=== PATIENT | female | born 1990 | race Caucasian/White ===

== ENCOUNTER 2017-05-16 08:38 | Emergency (ER) | payer OTHER ==
[2017-05-16] MEDS ORDERED: KETOROLAC 30 MG/1 ML SDV IVP ONE (08:58)
[2017-05-16] MEDS ORDERED: METOCLOPRAMIDE 10 MG/2 ML VIAL IVP ONE (08:58)
[2017-05-16] MEDS ORDERED: NS 1,000 ML IV ONE (08:58)
[2017-05-16 08:59] VITALS: TEMP 98.4
[2017-05-16] MEDS ORDERED: MAGNESIUM SULF 1 GM/DEXTROSE 100 ML IV ONE (09:01)
--- NOTE | 2017-05-16 09:22 | EDPHY ---
H & P Stated Complaint: migraine Time Seen by Provider: 05/16/17 08:47 HPI/ROS: This patient presents with severe bifrontal headache more than occipital, pressure sensation. She reports the intensity is severe and the onset was 2 days ago. She is brought in by her mother by private vehicle for further evaluation. The patient reports that she had severe headaches in high school and was diagnosed at age 17 clinically with migraine but has never had any neuro imaging. She is concerned about tumor and she has a cousin that headache tumor and he reports worsening of the headache intensity in frequency recently to every few days having headache and describes escalating intensity with each headache. In the past she had been able to control her headaches with over-the- counter medications-typically NSAIDs and NyQuil or Excedrin but she has had no relief from his medications during this illness. She has not taken any medications this morning. She states the current intensity is 10/10 and worse with movement. She has associated photophobia and hyperacusis. ROS: Constitutional: No fevers or chills HEENT: No URI symptoms. Neuro: She describes blurry vision over the past couple days describes this as bilateral. She has no change in her hearing. No focal weakness though she does describe paresthesias bilateral hands and arms. She describes this as symmetric. No recent head trauma Pulmonary: No shortness of breath or other complaints Cardiovascular: No heart palpitations or lightheadedness line GI: Nausea but no vomiting. : No complaints Integumentary: No skin rash. Complete ROS is otherwise negative. Source: Patient Exam Limitations: No limitations - Personal History LMP (Females 10-55): 1-7 Days Ago - Medical/Surgical History Hx Asthma: No Hx Chronic Respiratory Disease: No Hx Diabetes: No Hx Cardiac Disease: No Hx Renal Disease: No Hx Cirrhosis: No Hx Alcoholism: No Hx HIV/AIDS: No Hx Splenectomy or Spleen Trauma: No Other PMH: migraines - Family History Significant Family History: Cancer (Intracranial tumors in 2 1st cousins) - Social History Smoking Status: Never smoked Alcohol Use: Occasionally Drug Use: None - Physical Exam Exam: Physical exam: Vital signs are normal General: Patient is in no acute distress. HEENT: Is no external evidence of trauma on exam. Nose atraumatic. Ears: Clear bilaterally with no hemotympanum. Oropharynx: No dental trauma or malocclusion. No intraoral lacerations. Eyes: Pupils are equal and reactive to light. Extraocular motions are intact. Optic fundi: Clear with no papilledema or hemorrhage. Neck: Trachea is midline with no stridor. The patient has no midline neck tenderness and retains a full range of motion without increase in pain. Lungs: Clear to auscultation bilaterally Cardiac: Regular rate and rhythm no murmur gallop or rub. Chest: Nontender. Abdomen: Soft nontender no organomegaly Back: Nontender Extremities: Atraumatic Neuro: GCS of 15. Cranial nerves II through XII intact. Cerebellar exam is normal as judged by symmetric rapid hand movements bilaterally. No pronator drift. No sensory or motor deficits are appreciated. Headache including but not limited to subarachnoid hemorrhage, migraine headache , tension headache and infectious causes such as meningitis, pharyngitis and sinusitis. Constitutional: Initial Vital Signs Temperature (C) 36.9 C 05/16/17 08:54 Heart Rate 77 05/16/17 08:54 Respiratory Rate 20 05/16/17 08:54 Blood Pressure 136/87 H 05/16/17 08:54 O2 Sat (%) 99 05/16/17 08:54 O2 Delivery Mode Room Air Allergies/Adverse Reactions: amoxicillin Allergy (Verified 05/16/17 08:59) Home Medications: Medication Instructions Recorded Ondansetron Odt [Zofran Odt] 4 - 8 mg PO Q4PRN PRN #4 tab 05/16/17 SUMAtriptan [Imitrex 50 MG (RX)] 50 - 100 mg PO Q2H PRN #6 tab 05/16/17 Medical Decision Making - Diagnostics Imaging Results: Imaging Impressions Head CT 05/16/17 09:00 Impression: No acute intracranial findings. Findings discussed with MINOO VALDEZ 05/16/2017 at 10:08. ED Course/Re-evaluation: IV normal saline bolus Reglan and Benadryl Toradol IV Magnesium IV Discussion: Given the patient's worst headache of life, change in the pattern intensity of the headache from prior headaches and lack of relief from over-the- counter medications as well as no prior neuro imaging with her headaches, I feel that she warrants CT imaging today to rule out intracranial bleed or tumor. I spoke with our radiologist-Dr. Muse regarding patient's CT brain which she read as negative. I also reviewed this CT myself The patient had complete resolution of her headache with treatment. Counseled her regarding migraine headaches. Although this was by cranial in location and otherwise this consistent with a migraine that is slightly different in character than her typical migraines. We ruled out intracranial bleed or tumor with normal head CT today. Will start her on Imitrex ibuprofen Zofran p.r.n. for any subsequent migraines with plan to follow up with Neurology for any ongoing symptoms despite treatment plan. At the time of discharge she is comfortable with a GCS 15. Her paresthesias have resolved. - Data Points Laboratory Results: 05/16/17 09:10 Beta HCG, Qual NEGATIVE Medications Given: Discontinued Medications Diphenhydramine HCl (Benadryl Injection) 25 mg IVP EDNOW ONE Stop: 05/16/17 08:59 Last Admin: 05/16/17 09:29 Dose: 25 mg Sodium Chloride (Ns) 1,000 mls @ 0 mls/hr IV ONCE ONE; Wide Open PRN Reason: Protocol Stop: 05/16/17 08:59 Last Admin: 05/16/17 09:29 Dose: 1,000 mls Magnesium Sulfate/Dextrose (Magnesium Sulf 1 Gm (Premix)) 100 mls @ 100 mls/hr IV EDNOW ONE Stop: 05/16/17 10:00 Last Admin: 05/16/17 09:35 Dose: 100 mls Ketorolac Tromethamine (Toradol) 15 mg IVP EDNOW ONE Stop: 05/16/17 08:59 Last Admin: 05/16/17 09:31 Dose: 15 mg Metoclopramide HCl (Reglan Injection) 10 mg IVP EDNOW ONE Stop: 05/16/17 08:59 Last Admin: 05/16/17 09:33 Dose: 10 mg Departure - Departure Disposition: Home, Routine, Self-Care Clinical Impression: Migraine headache Qualifiers: Migraine type: without aura Status migrainosus presence: with status migrainosus Intractability: not intractable Qualified Code(s): G43.001 - Migraine without aura, not intractable, with status migrainosus Condition: Fair Instructions: Migraine Headache (ED) Additional Instructions: Diagnosis: Migraine headache Your CT scan is normal. Plan: If you have recurrent migraine, take 600 mg of ibuprofen, a dose of Imitrex as prescribed and if needed, and Zofran for nausea and rest. Follow up with primary care physician for recheck. For any changing or ongoing symptoms despite treatment plan see the neurologist. For any worsening despite treatment plan, return to the emergency department. Referrals: Alyssa Jones [Primary Care Provider] - As per Instructions Arsh Tse MD [Medical Doctor] - As per Instructions Stand Alone Forms: Work Excuse Prescriptions: Ondansetron Odt [Zofran Odt] 4 - 8 mg PO Q4PRN PRN #4 tab PRN Reason: Vomiting SUMAtriptan [Imitrex 50 MG (RX)] 50 - 100 mg PO Q2H PRN #6 tab PRN Reason: migraine
[2017-05-16 10:21] VITALS: PULSE 66; RESP 16
[2017-05-16 11:36] VITALS: BP 100/56; O2SAT 98
== END 2017-05-16 11:10 | disposition home or self-care (01) ==
LOC: CED 08:38
DX: G43.001 Migraine without aura, not intractable, with status migrainosus (principal); E86.9 Volume depletion, unspecified
CPT/HCPCS: 70450-PO; 84703-PO; 96365; J1200; J1885; J2765; J3475